=== PATIENT | female | born 1990 | race Caucasian/White ===

== ENCOUNTER 2016-08-05 22:17 | Emergency (ER) | payer MEDICAID ==
[~2016-08-05] VITALS: Ht 157.5 cm; Wt 80.9 kg
[~2016-08-05 22:17] MED LIST: XAN1 PO
[2016-08-06 01:57] LABS: CALCIUM 8.9 mg/dL (8.5-10.1); CARBON DIOXIDE 27.4 mmol/L (21-32); CHLORIDE SERUM 105 mmol/L (98-107); CREATININE SERUM 0.6 mg/dL (0.6-1.0); GFR1 > 60 mL/min; GLUCOSE SERUM 121 mg/dL (74-106); POTASSIUM SERUM 4.4 mmol/L (3.5-5.1); SODIUM SERUM 142 mmol/L (136-145)
[2016-08-06 01:59] LABS: BASOPHIL % 0.4 % (0-2); PLATELET COUNT 271 x10^3mcL (130-400)
[2016-08-06 02:00] LABS: RED CELL DISTRIBUTION WIDTH 17.6 % (11.5-14.5)
[2016-08-06 02:02] LABS: ALBUMIN 3.5 g/dL (3.4-5.0); ALKALINE PHOSPHATASE 150 U/L (46-116); ALT/SGPT 48 U/L (14-59); AMYLASE 29 U/L (25-115); AST/SGOT 74 U/L (15-37); LIPASE 36 IU/L (73-393); TOTAL PROTEIN, SERUM 8.3 g/dL (6.4-8.2)
[2016-08-06 03:34] VITALS: BP 90/60
== END 2016-08-06 03:34 | disposition home or self-care (01) ==
LOC: ED 22:17
PROVIDERS: Emergency Medicine
DX: R10.13 Epigastric pain (principal); Z88.5 Allergy status to narcotic agent; Z88.6 Allergy status to analgesic agent
CPT/HCPCS: 83880; C9113; J2550